=== PATIENT | male | born 1965 | race Caucasian/White ===

== ENCOUNTER 2017-05-20 23:01 | Emergency (ER) | payer OTHER ==
[~2017-05-20] VITALS: Ht 172.7 cm; Wt 85.9 kg
[~2017-05-20 23:01] MED LIST: ACYCLOVIR400 MG PO; ASPIR-TRIN325 M1 PO; AUGMENTIN875 MG PO; IBUPROFEN200 MG PO; MOTRIN IB200 MG PO; MOTRIN800 MG PO; NOHOMEMEDS; NORCO 5/3251 TABLET PO; PERCOCET 5/31 TABLET PO; PERCOCET 7.5-31 EACH PO; VICODIN 5-5001 EACH PO; ZOVIRAX400 MG PO
[2017-05-21] MEDS ORDERED: MOTRIN800 MG PO (01:47)
[2017-05-21] MEDS ORDERED: NORCO 7.5/321 TABLET PO (01:47)
[2017-05-21 02:58] VITALS: BP 109/71
== END 2017-05-21 02:59 | disposition home or self-care (01) ==
LOC: EME 23:01
DX: S76.111A Strain of right quadriceps muscle, fascia and tendon, initial encounter (principal); M23.91 Unspecified internal derangement of right knee; W22.8XXA Striking against or struck by other objects, initial encounter; F17.200 Nicotine dependence, unspecified, uncomplicated
CPT/HCPCS: 73564; 99281; 99284

== ENCOUNTER 2017-07-01 18:07 | Emergency (ER) | payer OTHER ==
[~2017-07-01] VITALS: Ht 172.7 cm; Wt 84.8 kg
[~2017-07-01 18:07] MED LIST changes: +NORCO 7.5/321 TABLET PO
[2017-07-01 23:58] LABS: HEMATOCRIT 38.3 % (38.0-50.0); HEMOGLOBIN 13.2 G/DL (12.5-16.6); MCH 32.6 PG (29.0-34.0); MCHC 34.5 G/DL (30.0-36.0); MCV 94.6 FL (86-99); PLATELET COUNT 274 K/uL (156-360); RBC DIS.WIDTH-SD 44.9 % (39-53); RED BLOOD COUNT 4.05 M/uL (4.00-5.50)
[2017-07-02 00:22] LABS: CREATINE KINASE 254 IU/L (1-294); TOTAL CK 254 IU/L (1-294); URIC ACID 6.1 mg/dL (3.1-9.2)
[2017-07-02] MEDS ORDERED: NORCO 5/3251 TABLET PO (00:25)
[2017-07-02 00:29] LABS: CK-MB 3.2 ng/mL (0.0-4.9); CKMB RELATIVE INDEX 1.3 (0.0-3.9)
[2017-07-02 00:57] VITALS: BP 125/86
[2017-07-02 01:48] LABS: C-REACTIVE PROTEIN 7.6 MG/L (0-10)
[2017-07-02 03:34] LABS: ERTH.SED.RATE 29 MM/HR (0-20)
== END 2017-07-02 01:02 | disposition home or self-care (01) ==
LOC: EME 18:07
PROVIDERS: Emergency Medicine
DX: M79.89 Other specified soft tissue disorders (principal); M25.561 Pain in right knee; F17.200 Nicotine dependence, unspecified, uncomplicated
CPT/HCPCS: 82550; 82553; 84550; 85027; 85651; 86140; 93971; 99281; 99284